=== PATIENT | female | born 1935 | race Caucasian/White ===

== ENCOUNTER → 2016-06-01 | Outpatient (REF) | payer MEDICARE ==
[2016-06-01 08:51] LABS: MEAN CORPUSCULAR HEMOGLOBIN 30.4 pg (27.0-33.0); MEAN CORPUSCULAR HGB CONC 32.1 g/dl (32.0-36.5); MEAN CORPUSCULAR VOLUME 94.5 fl (80.0-96.0); RED CELL DISTRIBUTION WIDTH 13.7 % (11.5-14.5); WHITE BLOOD COUNT 6.4 K/mm3 (4.0-10.0)
[2016-06-01 09:31] LABS: THYROXINE (T4) 5.4 UG/DL (4.5-12.0)
== END ==
LOC: SKLAB6 07:00
PROVIDERS: ATTEND Family Medicine
DX: I50.9 Heart failure, unspecified (principal); I10 Essential (primary) hypertension

== ENCOUNTER → 2016-09-28 | Outpatient (REF) | payer MEDICARE ==
[2016-09-28 09:13] LABS: BASO % 0.5 % (0.0-1.0); EOS # 0.2 K/mm3 (0.0-0.50); EOS % 4.3 % (0.0-3.0); LARGE UNSTAINED CELL # 0.1 K/mm3 (0.0-0.4); LARGE UNSTAINED CELL % 2.5 % (0.0-4.0); LYMPH # 1.1 K/mm3 (1.5-4.5); LYMPH % 25.7 % (24.0-44.0); MEAN CORPUSCULAR HEMOGLOBIN 31.9 pg (27.0-33.0); MEAN CORPUSCULAR HGB CONC 32.1 g/dl (32.0-36.5); MEAN CORPUSCULAR VOLUME 99.3 fl (80.0-96.0); MONO # 0.3 K/mm3 (0.0-0.8); MONO % 5.7 % (0.0-5.0); NEUTROPHILS # 2.7 K/mm3 (1.8-7.7); NEUTROPHILS % 61.2 % (36.0-66.0); PLATELET COUNT, AUTOMATED 269 k/mm3 (150-450); RED CELL DISTRIBUTION WIDTH 13.1 % (11.5-14.5); WHITE BLOOD COUNT 4.3 K/mm3 (4.0-10.0)
[2016-09-28 09:45] LABS: ALBUMIN 3.2 GM/DL (3.2-5.2); ALBUMIN/GLOBULIN RATIO 0.89 (1.00-1.93); ALKALINE PHOSPHATASE 87 U/L (45-117); ALT/SGPT 25 U/L (12-78); ANION GAP 9 MEQ/L (8-16); AST/SGOT 20 U/L (15-37); BILIRUBIN,TOTAL 0.3 MG/DL (0.2-1.0); BLOOD UREA NITROGEN 31 MG/DL (7-18); CALCIUM LEVEL 8.6 MG/DL (8.8-10.2); CARBON DIOXIDE LEVEL 26 MEQ/L (21-32); CHLORIDE LEVEL 109 MEQ/L (98-107); CREATININE FOR GFR 0.93 MG/DL (0.55-1.02); GLOMERULAR FILTRATION RATE > 60.0 (>32); GLUCOSE, FASTING 124 MG/DL (83-110); POTASSIUM SERUM 3.8 MEQ/L (3.5-5.1); SODIUM LEVEL 144 MEQ/L (136-145); TOTAL PROTEIN 6.8 GM/DL (6.4-8.2)
== END ==
LOC: SKLAB6 07:00
PROVIDERS: ATTEND Family Medicine
DX: G30.9 Alzheimer's disease, unspecified (principal)

== ENCOUNTER → 2016-11-05 | Outpatient (REF) | payer MEDICARE ==
--- NOTE | 2016-11-05 13:12 | REP ---
Portable chest x-ray: Single AP view. History: Cough. Findings: No comparison views. Heart is at the upper range of normal in size. The aorta is tortuous and calcific. The lungs are symmetrically aerated. No infiltrate seen. Pleural angles are sharp. Pulmonary vasculature is not increased. There is diffuse osteopenia. Impression: Borderline heart size. No infiltrate seen. Signed by Edgar Quick MD 11/05/2016 01:39 P
== END ==
LOC: M RAD 08:00
PROVIDERS: ATTEND Family Medicine
DX: R05 Cough (principal)

== ENCOUNTER → 2016-11-05 | Outpatient (REF) | payer MEDICARE ==
[2016-11-05 11:33] LABS: BASO % 0.2 % (0.0-1.0); EOS # 0.1 K/mm3 (0.0-0.50); EOS % 1.2 % (0.0-3.0); LARGE UNSTAINED CELL # 0.2 K/mm3 (0.0-0.4); LARGE UNSTAINED CELL % 1.6 % (0.0-4.0); LYMPH # 1.2 K/mm3 (1.5-4.5); LYMPH % 9.6 % (24.0-44.0); MEAN CORPUSCULAR HEMOGLOBIN 31.2 pg (27.0-33.0); MEAN CORPUSCULAR HGB CONC 32.4 g/dl (32.0-36.5); MEAN CORPUSCULAR VOLUME 96.5 fl (80.0-96.0); MONO # 0.8 K/mm3 (0.0-0.8); MONO % 7.3 % (0.0-5.0); NEUTROPHILS # 8.3 K/mm3 (1.8-7.7); NEUTROPHILS % 80.1 % (36.0-66.0); PLATELET COUNT, AUTOMATED 286 k/mm3 (150-450); RED CELL DISTRIBUTION WIDTH 12.7 % (11.5-14.5); WHITE BLOOD COUNT 10.3 K/mm3 (4.0-10.0)
[2016-11-05 11:58] LABS: CALCIUM LEVEL 9.2 MG/DL (8.8-10.2); CREATININE FOR GFR 0.96 MG/DL (0.55-1.02); GLOMERULAR FILTRATION RATE 59.4 (>32); POTASSIUM SERUM 3.8 MEQ/L (3.5-5.1)
--- NOTE | 2016-11-10 14:41 | MHIPNPDOC ---
[facility] Progress Note Progress Note DATE OF SERVICE: 11/10/16 Spoke this morning with Brittany Shaver NP about Mrs. Jovani rudd. she stated there were concerns about her current medications. The psychiatry team, Dr. Rogers and Dr. Land recommended on our first consult to not administer benzodiazepines as they increase confusion in the elderly plus they might put them at risk for falls. She was started on Zyprexa and it was recommended to increase her Amantadine. This fiction and nonfiction writer prose was contacted on 11/03/16 when CAGE SUPERVISOR reported she was more agitated with Zyprexa and reported she was doing better with previous treatment with Risperdal, so, this fiction and nonfiction writer prose recommended to taper down and eventually discontinue Zyprexa and start her on Risperdal until a 1 mg. PO BID would be reached. Recommended Benadryl 50 mgs. PO QHS for insomnia because she was reported agitated and wandering around the floor. Those are typical signs of dementia and I believe a Neurologist should be consulted and if there are more concerns about the patient and her response to medications, her Attending should be contacting us for further questions/ doubts. Appreciate the consult, will visit the patient, but this case requires a Neurologist intervention. Dr. Susu Land . SUSU LAND MD Nov 10, 2016 14:41
== END ==
LOC: SKLAB6 08:00
PROVIDERS: ATTEND Family Medicine
DX: R05 Cough (principal)

== ENCOUNTER → 2016-11-30 | Outpatient (REF) | payer MEDICARE ==
[2016-11-30 11:32] LABS: THYROXINE (T4) 7.9 UG/DL (4.5-12.0)
== END ==
LOC: SKLAB6 07:00
PROVIDERS: ATTEND Family Medicine
DX: E03.9 Hypothyroidism, unspecified (principal)

== ENCOUNTER → 2017-04-05 | Outpatient (REF) | payer MEDICARE ==
[2017-04-05 08:54] LABS: BASO % 0.4 % (0.0-1.0); EOS # 0.1 10^3/uL (0.0-0.50); EOS % 1.7 % (0.0-3.0); IMMATURE GRANULOCYTE % 0.4 % (0-0); LYMPH # 1.4 10^3/uL (1.5-4.5); LYMPH % 17.8 % (24.0-44.0); MEAN CORPUSCULAR HEMOGLOBIN 31.1 pg (27.0-33.0); MEAN CORPUSCULAR HGB CONC 31.4 g/dl (32.0-36.5); MEAN CORPUSCULAR VOLUME 99.2 fl (80.0-96.0); MONO # 0.6 10^3/uL (0.0-0.8); MONO % 7.8 % (0.0-5.0); NEUTROPHILS # 5.5 10^3/uL (1.8-7.7); NEUTROPHILS % 71.9 % (36.0-66.0); PLATELET COUNT, AUTOMATED 295 10^3/uL (150-450); WHITE BLOOD COUNT 7.6 10^3/uL (4.0-10.0)
[2017-04-05 09:46] LABS: ALBUMIN 3.7 GM/DL (3.2-5.2); ALBUMIN/GLOBULIN RATIO 1.12 (1.00-1.93); ALKALINE PHOSPHATASE 68 U/L (45-117); ALT/SGPT 36 U/L (12-78); ANION GAP 5 MEQ/L (8-16); AST/SGOT 36 U/L (7-37); BILIRUBIN,TOTAL 0.3 MG/DL (0.2-1.0); BLOOD UREA NITROGEN 26 MG/DL (7-18); CALCIUM LEVEL 9.4 MG/DL (8.8-10.2); CARBON DIOXIDE LEVEL 31 MEQ/L (21-32); CHLORIDE LEVEL 107 MEQ/L (98-107); CREATININE FOR GFR 0.78 MG/DL (0.55-1.02); GLOMERULAR FILTRATION RATE > 60.0 (>32); GLUCOSE, FASTING 84 MG/DL (83-110); POTASSIUM SERUM 4.4 MEQ/L (3.5-5.1); SODIUM LEVEL 143 MEQ/L (136-145)
== END ==
LOC: SKLAB8 07:00
PROVIDERS: ATTEND Family Medicine
DX: G30.9 Alzheimer's disease, unspecified (principal); F02.80 Dementia in other diseases classified elsewhere, unspecified severity, without behavioral disturbance, psychotic disturbance, mood disturbance, and anxiety

== ENCOUNTER → 2017-05-11 | Outpatient (CLI) | payer MEDICARE ==
--- NOTE | 2017-05-11 15:37 | REP ---
Left lower extremity Duplex Doppler venous ultrasound: Real time compression and duplex Doppler interrogation of the left lower extremity deep venous system is performed. The left common femoral, superficial femoral and popliteal veins are fully compressible with transducer pressure and demonstrate normal spontaneous and phasic flow, without evidence of deep venous thrombosis. Impression: No evidence of deep venous thrombosis of the left lower extremity femoral popliteal venous system. Signed by Omar Puga MD 05/11/2017 03:29 P
== END ==
LOC: M RAD 14:43
PROVIDERS: ATTEND Family Medicine
DX: R60.9 Edema, unspecified (principal)

== ENCOUNTER → 2017-05-26 | Outpatient (REF) | payer MEDICARE | LOC: M RAD 14:00 | DX: R06.2 Wheezing (principal) | CPT/HCPCS: 71045 ==

== ENCOUNTER 2017-06-04 11:30 | Outpatient (REF) | payer MEDICARE | END 2017-07-05 | LOC: SKLAB8 11:30 | DX: R05 Cough (principal) | CPT/HCPCS: 87633 ==

== ENCOUNTER → 2017-07-28 | Outpatient (REF) | payer MEDICARE ==
[2017-07-28 11:31] LABS: HEMATOCRIT 39.5 % (36.0-47.0); HEMOGLOBIN 12.6 g/dl (12.0-16.0); MEAN CORPUSCULAR HEMOGLOBIN 31.1 pg (27.0-33.0); MEAN CORPUSCULAR HGB CONC 31.9 g/dl (32.0-36.5); MEAN CORPUSCULAR VOLUME 97.5 fl (80.0-96.0); PLATELET COUNT, AUTOMATED 229 10^3/uL (150-450); RED BLOOD COUNT 4.05 10^6/uL (4.00-5.40); RED CELL DISTRIBUTION WIDTH 13.3 % (11.5-14.5); WHITE BLOOD COUNT 7.5 10^3/uL (4.0-10.0)
[2017-07-28 11:56] LABS: ANION GAP 8 MEQ/L (8-16); BLOOD UREA NITROGEN 33 MG/DL (7-18); CALCIUM LEVEL 8.4 MG/DL (8.8-10.2); CARBON DIOXIDE LEVEL 20 MEQ/L (21-32); CHLORIDE LEVEL 116 MEQ/L (98-107); GLOMERULAR FILTRATION RATE > 60.0 (>32); GLUCOSE, FASTING 86 MG/DL (70-100); POTASSIUM SERUM 3.1 MEQ/L (3.5-5.1); SODIUM LEVEL 144 MEQ/L (136-145)
[2017-07-29 07:39] LABS: BASO % 0.3 % (0.0-1.0); EOS % 0.1 % (0.0-3.0); IMMATURE GRANULOCYTE % 0.4 % (0-3.0); LYMPH # 1.7 10^3/uL (1.5-4.5); LYMPH % 22.2 % (24.0-44.0); MONO # 1.3 10^3/uL (0.0-0.8); MONO % 15.9 % (0.0-5.0); NEUTROPHILS # 4.8 10^3/uL (1.8-7.7); NEUTROPHILS % 61.1 % (36.0-66.0)
[2017-07-29 11:28] LABS: DIFF SLIDE NUMBER 133
== END ==
LOC: M LAB 10:46
DX: R19.7 Diarrhea, unspecified (principal)
CPT/HCPCS: 36415

== ENCOUNTER → 2017-07-29 | Outpatient (REF) | payer MEDICARE | LOC: SKLAB8 08:45 | DX: R19.7 Diarrhea, unspecified (principal) | CPT/HCPCS: 87493 ==

== ENCOUNTER → 2017-07-30 | Outpatient (REF) | payer MEDICARE ==
[2017-07-30 09:24] LABS: POTASSIUM SERUM 3.1 MEQ/L (3.5-5.1)
== END ==
LOC: SKLAB8 07:00
DX: N18.3 Chronic kidney disease, stage 3 (moderate) (principal); I12.9 Hypertensive chronic kidney disease with stage 1 through stage 4 chronic kidney disease, or unspecified chronic kidney disease
CPT/HCPCS: 84132

== ENCOUNTER → 2017-07-31 | Outpatient (REF) | payer MEDICARE ==
[2017-07-31 07:42] LABS: POTASSIUM SERUM 3.8 MEQ/L (3.5-5.1)
== END ==
LOC: SKLAB8 08:00
DX: E87.6 Hypokalemia (principal)
CPT/HCPCS: 84132

== ENCOUNTER 2017-09-14 15:39 | Inpatient (IN) | payer MEDICARE ==
[2017-09-14] MEDS: NS 1,000 ML IV (16:39)
[2017-09-14 16:42] LABS: HEMATOCRIT 37.1 % (36.0-47.0); HEMOGLOBIN 11.9 g/dl (12.0-15.5); MEAN CORPUSCULAR HEMOGLOBIN 30.7 pg (27.0-33.0); MEAN CORPUSCULAR HGB CONC 32.1 g/dl (32.0-36.5); MEAN CORPUSCULAR VOLUME 95.9 fl (80.0-96.0); PLATELET COUNT, AUTOMATED 256 10^3/uL (150-450); RED BLOOD COUNT 3.87 10^6/uL (4.00-5.40); WHITE BLOOD COUNT 9.3 10^3/uL (4.0-10.0)
[2017-09-14 16:54] LABS: INR 0.94; PROTHROMBIN TIME 12.6 SECONDS (12.4-14.5)
[2017-09-14 16:55] LABS: PARTIAL THROMBOPLASTIN TIME 26.9 SECONDS (26.8-37.9)
[2017-09-14 16:59] LABS: ANION GAP 6 MEQ/L (8-16); BLOOD UREA NITROGEN 24 MG/DL (7-18); CALCIUM LEVEL 8.5 MG/DL (8.8-10.2); CARBON DIOXIDE LEVEL 25 MEQ/L (21-32); CHLORIDE LEVEL 114 MEQ/L (98-107); GLOMERULAR FILTRATION RATE > 60.0 (>32); GLUCOSE, FASTING 140 MG/DL (70-100); POTASSIUM SERUM 3.3 MEQ/L (3.5-5.1); SODIUM LEVEL 145 MEQ/L (136-145)
[2017-09-14] MEDS ORDERED: MORPHINE 2 MG/ML 1ML SYRINGE (J2270) As Ordered (19:14)
[2017-09-14] MEDS: MORPHINE 2 MG/ML 1ML SYRINGE (J2270) IV (19:17)
[2017-09-14] MEDS ORDERED: MAALOX 30 ML SUSP *UDC PO (19:45)
[2017-09-14] MEDS ORDERED: BISACODYL 10 MG SUPP PR (19:45)
[2017-09-14] MEDS ORDERED: PREPARATION H OINTMENT (HEMORRHOID) TOP (19:45)
[2017-09-14] MEDS: ONDANSETRON 4MG/2ML VIAL (J2405) IV (20:35)
[2017-09-14] MEDS: MORPHINE 4 MG/ML 1ML VIAL/SYRINGE (J2270) IV (20:36)
[2017-09-14 21:37] LABS: CPK CREATINE PHOSPHOKINASE 135 U/L (26-192); MAGNESIUM LEVEL 1.8 MG/DL (1.8-2.4); TROPONIN I < 0.02 NG/ML (< 0.10)
[2017-09-14 21:38] LABS: CK-MB VALUE MASS 9.4 NG/ML (<3.6); MB/CK RELATIVE INDEX 6.96 (< OR =4)
[2017-09-14] MEDS: AQUAPHOR **100GM** OINT TOP (23:04)
[2017-09-14] MEDS: KCL 20MEQ in NS 1000ML 1,000 ML IV (23:05)
[2017-09-14] MEDS: POTASSIUM CHLORIDE 10 MEQ SR TABLET PO (23:05)
[2017-09-14] MEDS: SENOKOT S TAB PO (23:05)
[2017-09-14] MEDS: HEPARIN SOD (PORCINE) 5000 UNITS/ML VIAL SC (23:05)
[2017-09-14] MEDS: POLYVINYL ALCOHOL OPHTH SOLN 15 ML(LIQUITEARS) OU (23:05)
[2017-09-14] MEDS: risperiDONE 1 MG TAB PO (23:06)
[2017-09-14] MEDS: ATENOLOL 12.5MG PER 1/2 TABLET PO (23:07)
[2017-09-14] MEDS: carBAMazepine 100 MG *1/2* TAB PO (23:07)
[2017-09-15 02:28] LABS: CK-MB VALUE MASS 6.6 NG/ML (<3.6); CPK CREATINE PHOSPHOKINASE 105 U/L (26-192); MB/CK RELATIVE INDEX 6.28 (< OR =4); TROPONIN I < 0.02 NG/ML (< 0.10)
[2017-09-15] MEDS: MORPHINE 4 MG/ML 1ML VIAL/SYRINGE (J2270) IV ×2 (03:40→12:48)
[2017-09-15] MEDS: HEPARIN SOD (PORCINE) 5000 UNITS/ML VIAL SC ×2 (05:03→13:30)
[2017-09-15 06:02] LABS: HEMATOCRIT 33.5 % (36.0-47.0); HEMOGLOBIN 10.8 g/dl (12.0-15.5); MEAN CORPUSCULAR HEMOGLOBIN 30.9 pg (27.0-33.0); MEAN CORPUSCULAR HGB CONC 32.2 g/dl (32.0-36.5); MEAN CORPUSCULAR VOLUME 95.7 fl (80.0-96.0); PLATELET COUNT, AUTOMATED 247 10^3/uL (150-450); RED CELL DISTRIBUTION WIDTH 13.8 % (11.5-14.5); WHITE BLOOD COUNT 7.1 10^3/uL (4.0-10.0)
[2017-09-15 06:38] LABS: ANION GAP 7 MEQ/L (8-16); BLOOD UREA NITROGEN 13 MG/DL (7-18); CALCIUM LEVEL 8.3 MG/DL (8.8-10.2); CARBON DIOXIDE LEVEL 25 MEQ/L (21-32); CHLORIDE LEVEL 114 MEQ/L (98-107); CREATININE FOR GFR 0.52 MG/DL (0.55-1.30); GLOMERULAR FILTRATION RATE > 60.0 (>32); GLUCOSE, FASTING 101 MG/DL (70-100); POTASSIUM SERUM 4.1 MEQ/L (3.5-5.1); SODIUM LEVEL 146 MEQ/L (136-145); T UPTAKE 32 % (30-39); THYROXINE (T4) 6.3 UG/DL (4.5-12.0)
[2017-09-15] MEDS: SENOKOT S TAB PO (10:08)
[2017-09-15] MEDS: risperiDONE 1 MG TAB PO (10:08)
[2017-09-15] MEDS: MULTIVITAMINS/MINERALS THERAP 1 TAB PO (10:08)
[2017-09-15] MEDS: carBAMazepine 100 MG *1/2* TAB PO (10:08)
[2017-09-15] MEDS: KCL 20MEQ in NS 1000ML 1,000 ML IV (10:08)
[2017-09-15] MEDS: ATENOLOL 12.5MG PER 1/2 TABLET PO (10:08)
[2017-09-15] MEDS: AQUAPHOR **100GM** OINT TOP (10:09)
[2017-09-15] MEDS: POLYVINYL ALCOHOL OPHTH SOLN 15 ML(LIQUITEARS) OU ×3 (10:09→20:27)
[2017-09-15] MEDS ORDERED: FLEET ENEMA PR (14:15)
[2017-09-15] MEDS ORDERED: SCOPOLAMINE 1MG TRANSDERMAL PATCH TOP (14:15)
[2017-09-15] MEDS ORDERED: LORazepam 1 MG TAB SL (14:15)
[2017-09-15] MEDS ORDERED: MORPHINE 10MG/0.5ML ORAL CONCENTRATE SOLUTION U/D SL (14:15)
[2017-09-15] MEDS ORDERED: ACETAMINOPHEN 650 MG SUPP PR (14:15)
[2017-09-15] MEDS ORDERED: HYOSCYAMINE SULFATE 0.125 MG SUBL TABLET PO (14:15)
[2017-09-15] MEDS: MORPHINE 10MG/0.5ML ORAL CONCENTRATE SOLUTION U/D SL ×3 (14:48→22:51)
[2017-09-15] MEDS: LORazepam 1 MG TAB SL ×2 (15:42→20:23)
[2017-09-16] MEDS: MORPHINE 10MG/0.5ML ORAL CONCENTRATE SOLUTION U/D SL ×6 (02:09→21:41)
[2017-09-16] MEDS: LORazepam 1 MG TAB SL ×3 (09:24→20:20)
[2017-09-16] MEDS: POLYVINYL ALCOHOL OPHTH SOLN 15 ML(LIQUITEARS) OU ×3 (09:25→20:22)
[2017-09-17] MEDS: MORPHINE 10MG/0.5ML ORAL CONCENTRATE SOLUTION U/D SL ×8 (02:10→21:56)
[2017-09-17] MEDS: POLYVINYL ALCOHOL OPHTH SOLN 15 ML(LIQUITEARS) OU ×3 (09:03→21:56)
[2017-09-17] MEDS: LORazepam 1 MG TAB SL ×3 (09:03→21:56)
[2017-09-18] MEDS: MORPHINE 10MG/0.5ML ORAL CONCENTRATE SOLUTION U/D SL ×5 (01:40→12:34)
[2017-09-18] MEDS: LORazepam 1 MG TAB SL (07:59)
[2017-09-18] MEDS: POLYVINYL ALCOHOL OPHTH SOLN 15 ML(LIQUITEARS) OU (08:00)
== END 2017-09-18 12:42 | disposition hospice, home (50) | DRG 536 ==
LOC: M ED 15:39 → M ED INP 19:34 → M MSPAV 22:21
DX: S72.001A Fracture of unspecified part of neck of right femur, initial encounter for closed fracture (principal); F03.90 Unspecified dementia, unspecified severity, without behavioral disturbance, psychotic disturbance, mood disturbance, and anxiety; I10 Essential (primary) hypertension; G89.29 Other chronic pain; M40.209 Unspecified kyphosis, site unspecified; W18.30XA Fall on same level, unspecified, initial encounter; Y92.129 Unspecified place in nursing home as the place of occurrence of the external cause; Z88.0 Allergy status to penicillin; Z88.2 Allergy status to sulfonamides; Z79.899 Other long term (current) drug therapy; G40.909 Epilepsy, unspecified, not intractable, without status epilepticus; Z51.5 Encounter for palliative care; Z66 Do not resuscitate

== ENCOUNTER → 2017-09-14 | Outpatient (REF) | payer MEDICARE ==
[~2017-09-14] MED LIST: MORPHINE 4 MG/ML 1ML VIAL/SYRINGE (J2270) IV
== END ==
LOC: SKLAB8 08:00
DX: S72.001A Fracture of unspecified part of neck of right femur, initial encounter for closed fracture (principal); W19.XXXA Unspecified fall, initial encounter
CPT/HCPCS: 73502